=== PATIENT | female | born 1985 | race Hispanic/Latino ===

== ENCOUNTER 2021-10-19 08:36 | Emergency (ER) | payer MEDICAID ==
[~2021-10-19] VITALS: Ht 160 cm; Wt 61.0 kg
[~2021-10-19 08:36] MED LIST: IRON18 M1 OR; MACRODANTIN100 MG OR
[2021-10-19 09:35] LABS: IMMATURE GRANULOCYTES 0.1 % (0.0-5.0); MEAN CORPUSCULAR HGB 32.5 pG CALC (26.0-32.0); MEAN CORPUSCULAR HGB CONC 33.5 g/dL CAL (32.0-36.0); NEUT# 4.6 thou/uL (2.00-7.15); RED BLOOD COUNT 3.69 mill/uL (4.20-5.60); RED CELL DISTRI WIDTH 12.2 % (11.5-15.5)
[2021-10-19 09:37] LABS: HEMATOCRIT 35.8 % (37.0-47.0)
[2021-10-19 09:40] LABS: URINE BILIRUBIN - DIPSTICK NEGATIVE (NEGATIVE); URINE BLOOD DIPSTICK NEGATIVE (NEGATIVE); URINE COLOR YELLOW; URINE GLUCOSE - DIPSTICK NEGATIVE (NEGATIVE); URINE KETONE NEGATIVE (NEGATIVE); URINE LEUK ESTERASE NEGATIVE (NEGATIVE); URINE PH 7.5 (4.5-8.0); URINE PROTEIN - DIPSTICK NEGATIVE (NEG-TRACE); URINE UROBILINOGEN - DIPSTICK 0.2 E.U./dL (0.2)
[2021-10-19 09:43] LABS: URINE NITRITE - DIPSTICK NEGATIVE (Negative)
[2021-10-19 09:54] LABS: ALBUMIN 4.2 g/dL (3.2-5.0); ALKALINE PHOSPHATASE 68 u/l (38-126); ANION GAP 9 (6-22 (CALC)); BILIRUBIN, TOTAL 0.6 mg/dL (0.0-1.4); BUN 12 mg/dL (7-17); BUN/CREATININE RATIO 19 (12-20 (CALC)); CARBON DIOXIDE 26 mmol/l (22-30); CHLORIDE 107 mmol/l (95-108); CREATININE 0.7 mg/dL (0.5-1.0); GFR > 60 ML/MIN (>=60 (CALC)); GFR FOR AFR.AMER. > 60 ML/MIN (>=60 (CALC)); LIPASE 37 u/l (23-300); POTASSIUM 3.9 mmol/l (3.5-5.1); SGOT/AST 19 u/l (14-36); SODIUM 138 mmol/l (137-146)
[2021-10-19] MEDS ORDERED: BENTYL10 M1 PO (10:37)
[2021-10-19] MEDS ORDERED: ZOFRAN4 MG/TAB PO (10:37)
[2021-10-19 10:59] VITALS: BP 113/73
[2021-10-20] MEDS ORDERED: ULTRAM50 M1 PO (20:36)
== END 2021-10-19 11:29 | disposition home or self-care (01) ==
LOC: ED 08:36
PROVIDERS: Internal Medicine
DX: R10.13 Epigastric pain (principal); K76.0 Fatty (change of) liver, not elsewhere classified; F17.200 Nicotine dependence, unspecified, uncomplicated

== ENCOUNTER 2021-10-20 17:21 | Emergency (ER) | payer MEDICAID ==
[~2021-10-20] VITALS: Ht 160 cm; Wt 61.3 kg
[~2021-10-20 17:21] MED LIST changes: +BENTYL10 M1 PO; +ZOFRAN4 MG/TAB PO
[2021-10-20 17:43] VITALS: BP 135/93
[2021-10-20 18:36] VITALS: BP 103/74
[2021-10-20 18:40] LABS: HEMATOCRIT 34.6 % (37.0-47.0); HEMOGLOBIN 11.6 g/dl (12.0-16.0); IMMATURE GRANULOCYTES 0.3 % (0.0-5.0); MEAN CELL VOLUME 96.9 fL CALC (80.0-100.0); MEAN CORPUSCULAR HGB 32.5 pG CALC (26.0-32.0); MEAN CORPUSCULAR HGB CONC 33.5 g/dL CAL (32.0-36.0); NEUT# 5.8 thou/uL (2.00-7.15); RED BLOOD COUNT 3.57 mill/uL (4.20-5.60); RED CELL DISTRI WIDTH 12.1 % (11.5-15.5)
[2021-10-20 19:00] LABS: ALBUMIN 4.1 g/dL (3.2-5.0); ALKALINE PHOSPHATASE 65 u/l (38-126); ANION GAP 11 (6-22 (CALC)); BILIRUBIN, TOTAL 0.4 mg/dL (0.0-1.4); BUN 11 mg/dL (7-17); BUN/CREATININE RATIO 15 (12-20 (CALC)); CARBON DIOXIDE 26 mmol/l (22-30); CHLORIDE 106 mmol/l (95-108); CREATININE 0.7 mg/dL (0.5-1.0); GFR > 60 ML/MIN (>=60 (CALC)); GFR FOR AFR.AMER. > 60 ML/MIN (>=60 (CALC)); POTASSIUM 3.8 mmol/l (3.5-5.1); SGOT/AST 19 u/l (14-36); SODIUM 139 mmol/l (137-146); TOTAL PROTEIN 6.6 g/dL (6.3-8.2)
[2021-10-20] MEDS ORDERED: ULTRAM50 M1 PO (20:36)
[2021-10-20 20:38] VITALS: BP 120/80
== END 2021-10-20 20:51 | disposition home or self-care (01) ==
LOC: ED 17:21
PROVIDERS: Internal Medicine
DX: K80.20 Calculus of gallbladder without cholecystitis without obstruction (principal)

== ENCOUNTER 2021-10-23 11:35 | Observation (INO) | payer MEDICAID ==
[2021-10-23] VITALS (10 sets, daily range): BP systolic 97–145; BP diastolic 51–85
[~2021-10-23] VITALS: Ht 157.5 cm; Wt 59.0 kg
[~2021-10-23 11:35] MED LIST changes: +ULTRAM50 M1 PO
[2021-10-23 12:40] LABS: HEMATOCRIT 35.1 % (37.0-47.0); HEMOGLOBIN 11.8 g/dl (12.0-16.0); IMMATURE GRANULOCYTES 0.2 % (0.0-5.0); MEAN CELL VOLUME 95.9 fL CALC (80.0-100.0); MEAN CORPUSCULAR HGB 32.2 pG CALC (26.0-32.0); MEAN CORPUSCULAR HGB CONC 33.6 g/dL CAL (32.0-36.0); NEUT# 9.63 thou/uL (2.00-7.15); RED BLOOD COUNT 3.66 mill/uL (4.20-5.60); RED CELL DISTRI WIDTH 12.3 % (11.5-15.5)
[2021-10-23 13:04] LABS: ALBUMIN 4.1 g/dL (3.2-5.0); ALKALINE PHOSPHATASE 67 u/l (38-126); AMYLASE 61 u/l (30-110); ANION GAP 10 (6-22 (CALC)); BUN 10 mg/dL (7-17); BUN/CREATININE RATIO 17 (12-20 (CALC)); CARBON DIOXIDE 26 mmol/l (22-30); CHLORIDE 101 mmol/l (95-108); CREATININE 0.6 mg/dL (0.5-1.0); ETHYL ALCOHOL 0 mg/dl (0-30); GFR > 60 ML/MIN (>=60 (CALC)); GFR FOR AFR.AMER. > 60 ML/MIN (>=60 (CALC)); LIPASE 22 u/l (23-300); POTASSIUM 3.3 mmol/l (3.5-5.1); SGOT/AST 26 u/l (14-36); SODIUM 134 mmol/l (137-146)
[2021-10-23 13:05] LABS: BILIRUBIN, TOTAL 0.8 mg/dL (0.0-1.4)
[2021-10-23 13:36] LABS: URINE BILIRUBIN - DIPSTICK NEGATIVE (NEGATIVE); URINE BLOOD DIPSTICK TRACE-LYSED (NEGATIVE); URINE COLOR YELLOW; URINE GLUCOSE - DIPSTICK NEGATIVE (NEGATIVE); URINE KETONE 40 mg/dL (NEGATIVE); URINE LEUK ESTERASE NEGATIVE (NEGATIVE); URINE PH 6.5 (4.5-8.0); URINE PROTEIN - DIPSTICK NEGATIVE (NEG-TRACE); URINE UROBILINOGEN - DIPSTICK 0.2 E.U./dL (0.2)
[2021-10-23 13:48] LABS: URINE NITRITE - DIPSTICK NEGATIVE (Negative)
[2021-10-24 04:43] VITALS: BP 101/70
[2021-10-24 08:18] LABS: HEMATOCRIT 34.6 % (37.0-47.0); HEMOGLOBIN 11.5 g/dl (12.0-16.0); MEAN CELL VOLUME 98.3 fL CALC (80.0-100.0); MEAN CORPUSCULAR HGB 32.7 pG CALC (26.0-32.0); MEAN CORPUSCULAR HGB CONC 33.2 g/dL CAL (32.0-36.0); RED BLOOD COUNT 3.52 mill/uL (4.20-5.60); RED CELL DISTRI WIDTH 12.2 % (11.5-15.5)
[2021-10-24 08:29] VITALS: BP 110/71
[2021-10-24 08:30] LABS: ANION GAP 9 (6-22 (CALC)); BUN 8 mg/dL (7-17); BUN/CREATININE RATIO 15 (12-20 (CALC)); CARBON DIOXIDE 24 mmol/l (22-30); CHLORIDE 107 mmol/l (95-108); CREATININE 0.5 mg/dL (0.5-1.0); GFR > 60 ML/MIN (>=60 (CALC)); GFR FOR AFR.AMER. > 60 ML/MIN (>=60 (CALC)); POTASSIUM 3.2 mmol/l (3.5-5.1); SODIUM 136 mmol/l (137-146)
[2021-10-24] MEDS ORDERED: EPIPEN 2-P0.3 MG/0.3 IM (09:10)
[2021-10-24 16:39] VITALS: BP 109/69
[2021-10-24 19:08] VITALS: BP 122/76
[2021-10-25 04:23] VITALS: BP 107/67
[2021-10-25 05:33] LABS: HEMATOCRIT 35.2 % (37.0-47.0); HEMOGLOBIN 11.7 g/dl (12.0-16.0); MEAN CELL VOLUME 97.8 fL CALC (80.0-100.0); MEAN CORPUSCULAR HGB 32.5 pG CALC (26.0-32.0); MEAN CORPUSCULAR HGB CONC 33.2 g/dL CAL (32.0-36.0); RED BLOOD COUNT 3.6 mill/uL (4.20-5.60); RED CELL DISTRI WIDTH 12.2 % (11.5-15.5)
[2021-10-25 05:50] LABS: ANION GAP 8 (6-22 (CALC)); BUN 3 mg/dL (7-17); BUN/CREATININE RATIO 4 (12-20 (CALC)); CARBON DIOXIDE 24 mmol/l (22-30); CHLORIDE 108 mmol/l (95-108); CREATININE 0.6 mg/dL (0.5-1.0); GFR > 60 ML/MIN (>=60 (CALC)); GFR FOR AFR.AMER. > 60 ML/MIN (>=60 (CALC)); MAGNESIUM 1.8 mg/dL (1.6-2.3); POTASSIUM 3.2 mmol/l (3.5-5.1); SODIUM 138 mmol/l (137-146)
[2021-10-25 08:00] VITALS: BP 115/79
[2021-10-25 14:40] VITALS: BP 140/64
== END 2021-10-25 17:16 | disposition home or self-care (01) ==
LOC: ED 11:35 → ED-I 15:20 → ED 15:34 → MS2 15:35
PROVIDERS: ADMIT Internal Medicine; ATTEND Internal Medicine
DX: A04.4 Other intestinal Escherichia coli infections (principal); B96.21 Shiga toxin-producing Escherichia coli [E. coli] [STEC] O157 as the cause of diseases classified elsewhere
CPT/HCPCS: G0378; J1650; Q3014; Q9967; S0164

== ENCOUNTER 2022-09-11 20:03 | Emergency (ER) | payer MEDICAID ==
[~2022-09-11] VITALS: Ht 157.5 cm; Wt 63.5 kg
[~2022-09-11 20:03] MED LIST changes: +EPIPEN 2-P0.3 MG/0.3 IM
[2022-09-11 20:19] VITALS: BP 112/78
[2022-09-11 20:30] VITALS: BP 121/85
[2022-09-11 21:00] VITALS: BP 98/74
[2022-09-11 21:15] VITALS: BP 111/79
[2022-09-11 21:30] VITALS: BP 112/70
[2022-09-11 21:37] VITALS: BP 112/70
== END 2022-09-11 21:48 | disposition home or self-care (01) ==
LOC: ED 20:03
DX: S69.81XA Other specified injuries of right wrist, hand and finger(s), initial encounter (principal); W22.09XA Striking against other stationary object, initial encounter